=== PATIENT | female | born 2000 | race American Indian/Alaskan Native ===

== ENCOUNTER 2019-04-25 22:02 | Outpatient (CLI) | payer OTHER ==
[2019-04-25] MEDS ORDERED: LACTATED RINGERS 500 ML IV ONE (22:15)
[2019-04-25 23:06] LABS: Bilirubin,Urine NEG (Negative); Blood,Urine NEG (Negative); Color,Urine Amber (Yellow); Mucus,Urine FEW /HPF
[2019-04-25 23:14] LABS: Protein,Urine >500 mg/dL (Negative)
[2019-04-25 23:26] LABS: Hemoglobin 9.9 gm/dl (10.1-14.3); Mean Corpuscular HGB Conc 33 % (30-34); Mean Corpuscular Volume 83 fl (79-97); Platelet Count 179 K/mm3 (140-440); Red Blood Count 3.63 M/mm3 (3.65-5.03); Red Cell Distribution Width 14.6 % (13.2-15.2)
[2019-04-25 23:42] LABS: Alanine Aminotransferase 11 units/L (7-56)
[2019-04-26 00:19] VITALS: BP 157/84
[2019-04-26 01:51] LABS: Uric Acid 5.5 mg/dL (3.5-7.6)
== END 2019-04-26 00:44 | disposition home or self-care (01) ==
LOC: TRG 22:02
PROVIDERS: ATTEND Obstetrics & Gynecology
DX: O26.893 Other specified pregnancy related conditions, third trimester (principal); R10.30 Lower abdominal pain, unspecified; M79.89 Other specified soft tissue disorders; O99.513 Diseases of the respiratory system complicating pregnancy, third trimester; J45.909 Unspecified asthma, uncomplicated; Z3A.36 36 weeks gestation of pregnancy
CPT/HCPCS: 36415; 59025; 81001; 82565; 83615; 84450; 84460; 84550; 85027; 87086; J7120